=== PATIENT | female | born 1930 | race Caucasian/White ===

== ENCOUNTER 2018-02-24 11:10 | Observation (INO) | payer MEDICARE ==
[~2018-02-24] VITALS: Ht 170.2 cm; Wt 87.0 kg
[2018-02-24 11:41] LABS: BASOPHILS ABSOLUTE AUTO 0.04 K/mm3 (0.00-0.23); BASOPHILS PERCENT AUTO 0 % (0-2); EOSINOPHILS ABSOLUTE AUTO 0.17 K/mm3 (0.00-0.68); EOSINOPHILS PERCENT AUTO 2 % (0-6); Hematocrit 38.9 % (33.0-51.0); Hemoglobin 12.7 g/dL (11.5-16.0); IMMATURE GRAN ABSOLUTE AUTO 0.03 K/mm3 (0.00-0.10); IMMATURE GRAN PERCENT AUTO 0 % (0-1); LYMPHOCYTES ABSOLUTE AUTO 3.03 K/mm3 (0.84-5.20); LYMPHOCYTES PERCENT AUTO 32 % (21-46); MONOCYTES PERCENT AUTO 6 % (4-13); Mean Corpuscular HGB 28.2 pg (26.0-34.0); Mean Corpuscular HGB Conc 32.6 g/dL (31.5-36.5); Mean Corpuscular Volume 86 fL (80-100); Mean Platelet Volume 9.6 fL (9.1-12.4); NEUTROPHILS ABSOLUTE AUTO 5.61 K/mm3 (1.96-9.15); NEUTROPHILS PERCENT AUTO 59 % (41-73); Platelet Count 248 K/mm3 (150-400); RDW Coefficient Variation 12.7 % (11.7-14.2); RDW Standard Deviation 40.1 fL (35.1-46.3); White Blood Cell Count 9.48 K/mm3 (4.00-11.30)
[2018-02-24 11:58] LABS: Source, Urine Clean Catch
[2018-02-24 12:03] LABS: Bilirubin, Urine Neg (Neg); Blood, Urine 4+ (Neg); Glucose Qualitative, Urine 1+ (Neg); Ketones, Urine Neg (Neg); Leukocyte Esterase, Urine 3+ (Neg); Nitrite, Urine Neg (Neg); Protein, Urine 2+ (Neg); Urobilinogen, Urine NORM (Normal)
[2018-02-24 12:04] LABS: Appearance, Urine Hazy (Clear); Color, Urine Yellow (P-Yellow)
[2018-02-24] MEDS ORDERED: AMLO5 PO (12:09)
[2018-02-24] MEDS ORDERED: METF500C PO (12:10)
[2018-02-24] MEDS ORDERED: QUIN10 PO (12:10)
[2018-02-24 12:12] LABS: Alanine Aminotransfer (ALT/SGP 15 U/L (12-78); Albumin, Blood 3.3 g/dL (3.4-5.0); Albumin/Globulin Ratio 0.8 (0.8-1.8); Alk Phos 82 U/L (50-136); Anion Gap 9 mmol/L (6-16); Aspartate Aminotrans (AST/SGOT 11 U/L (12-37); Bilirubin, Total 0.4 mg/dL (0.1-1.0); Blood Urea Nitrogen 14 mg/dL (8-24); Bun/Creatinine Ratio 13.2 (12.0-20.0); CO2, Blood 27 mmol/L (21-32); Calcium, Blood 8.8 mg/dL (8.5-10.1); Chloride, Blood 104 mmol/L (98-108); Creatinine, Blood 1.06 mg/dL (0.40-1.00); Glomerular Filtration Rate 52 (60-); Glucose, Blood 217 mg/dL (70-99); Potassium, Blood 3.7 mmol/L (3.5-5.5); Sodium, Blood 140 mmol/L (136-145); Total Protein, Blood 7.3 g/dL (6.4-8.2); Troponin I <0.015 ng/mL (0.000-0.040)
[2018-02-24 12:45] LABS: White Blood Cells, Urine TNTC /hpf (0-5)
[2018-02-24 12:46] LABS: Bacteria Rare /hpf; Squamous Epithelial Cells Few /hpf (Few)
[2018-02-25] MEDS ORDERED: LEVFLO500 PO (11:12)
[2018-02-25] MEDS ORDERED: ASPI81CH PO (11:12)
[2018-02-25] MEDS ORDERED: ATOR40TA PO (11:12)
[2018-02-25] MEDS ORDERED: AMLO10 PO (11:12)
== END 2018-02-25 12:28 | disposition home health service (06) ==
LOC: ER 11:10 → MEDS 11:11 → ENPENDDIS 02-25 10:00 → MEDS 02-25 12:28
PROVIDERS: Emergency Medicine
DX: G45.9 Transient cerebral ischemic attack, unspecified (principal); I16.0 Hypertensive urgency; E11.9 Type 2 diabetes mellitus without complications; F03.90 Unspecified dementia, unspecified severity, without behavioral disturbance, psychotic disturbance, mood disturbance, and anxiety; N39.0 Urinary tract infection, site not specified; Z79.84 Long term (current) use of oral hypoglycemic drugs; Z79.899 Other long term (current) drug therapy; Z79.82 Long term (current) use of aspirin
CPT/HCPCS: 70450; 80053; 81001; 82550; 82947; 84484; 85025; 87077; 87086; 87186; 93005; 93010; 93880; 96365; 96372; 96375; 97161; 97165; 97530; 97535; 99285-25; G0378; G8978; G8979; G8980; G8987; G8988; G8989; J0360; J0696; J1650; P9612

== ENCOUNTER 2018-03-15 14:30 | Inpatient (IN) | payer MEDICARE ==
[~2018-03-15] VITALS: Ht 162.6 cm; Wt 88.9 kg
[~2018-03-15 14:30] MED LIST: AMLO10 PO; AMLO5 PO; ASPI81CH PO; ATOR40TA PO; LEVFLO500 PO; LISI20 PO; METF500C PO
[2018-03-15 16:08] LABS: Source, Urine Catheter
[2018-03-15 16:10] LABS: BASOPHILS ABSOLUTE AUTO 0.04 K/mm3 (0.00-0.23); BASOPHILS PERCENT AUTO 0 % (0-2); EOSINOPHILS ABSOLUTE AUTO 0.04 K/mm3 (0.00-0.68); EOSINOPHILS PERCENT AUTO 0 % (0-6); Hematocrit 37.9 % (33.0-51.0); Hemoglobin 12.7 g/dL (11.5-16.0); IMMATURE GRAN ABSOLUTE AUTO 0.07 K/mm3 (0.00-0.10); IMMATURE GRAN PERCENT AUTO 1 % (0-1); LYMPHOCYTES PERCENT AUTO 9 % (21-46); MONOCYTES ABSOLUTE AUTO 0.93 K/mm3 (0.16-1.47); MONOCYTES PERCENT AUTO 7 % (4-13); Mean Corpuscular HGB 28.4 pg (26.0-34.0); Mean Corpuscular HGB Conc 33.5 g/dL (31.5-36.5); Mean Corpuscular Volume 85 fL (80-100); Mean Platelet Volume 9.4 fL (9.1-12.4); NEUTROPHILS ABSOLUTE AUTO 11.81 K/mm3 (1.96-9.15); NEUTROPHILS PERCENT AUTO 83 % (41-73); Platelet Count 331 K/mm3 (150-400); RDW Coefficient Variation 12.3 % (11.7-14.2); RDW Standard Deviation 37.9 fL (35.1-46.3); Red Blood Cell Count 4.47 M/mm3 (3.80-5.20); White Blood Cell Count 14.19 K/mm3 (4.00-11.30)
[2018-03-15 16:13] LABS: Blood, Urine 4+ (Neg); Glucose Qualitative, Urine 1+ (Neg); Ketones, Urine Neg (Neg); Leukocyte Esterase, Urine 3+ (Neg); Nitrite, Urine Neg (Neg); Protein, Urine 3+ (Neg); Urobilinogen, Urine 1+ (Normal)
[2018-03-15 16:39] LABS: Albumin, Blood 3.1 g/dL (3.4-5.0); Albumin/Globulin Ratio 0.7 (0.8-1.8); Bilirubin, Total 0.5 mg/dL (0.1-1.0); Bun/Creatinine Ratio 18.8 (12.0-20.0); Calcium, Blood 9.1 mg/dL (8.5-10.1); Creatinine, Blood 1.44 mg/dL (0.40-1.00); Globulin, Blood 4.5 g/dL (2.2-4.0); Potassium, Blood 4.3 mmol/L (3.5-5.5); Total Protein, Blood 7.6 g/dL (6.4-8.2)
[2018-03-15 16:56] LABS: Appearance, Urine Cloudy (Clear); Bilirubin, Urine 2+ (Neg); Color, Urine Yellow (P-Yellow)
[2018-03-15 17:05] LABS: Squamous Epithelial Cells Many /hpf (Few)
[2018-03-15 17:06] LABS: Amorphous Light (0-Heavy); Bacteria Many /hpf
[2018-03-16 05:29] LABS: BASOPHILS ABSOLUTE AUTO 0.04 K/mm3 (0.00-0.23); BASOPHILS PERCENT AUTO 0 % (0-2); EOSINOPHILS ABSOLUTE AUTO 0.17 K/mm3 (0.00-0.68); EOSINOPHILS PERCENT AUTO 2 % (0-6); Hematocrit 36.3 % (33.0-51.0); IMMATURE GRAN ABSOLUTE AUTO 0.04 K/mm3 (0.00-0.10); IMMATURE GRAN PERCENT AUTO 0 % (0-1); LYMPHOCYTES PERCENT AUTO 26 % (21-46); MONOCYTES ABSOLUTE AUTO 0.69 K/mm3 (0.16-1.47); MONOCYTES PERCENT AUTO 7 % (4-13); Mean Corpuscular HGB 27.8 pg (26.0-34.0); Mean Corpuscular HGB Conc 33.1 g/dL (31.5-36.5); Mean Corpuscular Volume 84 fL (80-100); Mean Platelet Volume 9.1 fL (9.1-12.4); NEUTROPHILS PERCENT AUTO 65 % (41-73); Platelet Count 313 K/mm3 (150-400); RDW Coefficient Variation 12.3 % (11.7-14.2); RDW Standard Deviation 37.1 fL (35.1-46.3); Red Blood Cell Count 4.31 M/mm3 (3.80-5.20); White Blood Cell Count 10.64 K/mm3 (4.00-11.30)
[2018-03-16 05:48] LABS: Bun/Creatinine Ratio 23.1 (12.0-20.0); Calcium, Blood 9.1 mg/dL (8.5-10.1); Creatinine, Blood 1.08 mg/dL (0.40-1.00); Potassium, Blood 4.5 mmol/L (3.5-5.5)
[2018-03-18 05:34] LABS: BASOPHILS ABSOLUTE AUTO 0.05 K/mm3 (0.00-0.23); BASOPHILS PERCENT AUTO 1 % (0-2); EOSINOPHILS ABSOLUTE AUTO 0.21 K/mm3 (0.00-0.68); EOSINOPHILS PERCENT AUTO 2 % (0-6); Hematocrit 36.4 % (33.0-51.0); Hemoglobin 12.1 g/dL (11.5-16.0); IMMATURE GRAN ABSOLUTE AUTO 0.03 K/mm3 (0.00-0.10); IMMATURE GRAN PERCENT AUTO 0 % (0-1); LYMPHOCYTES ABSOLUTE AUTO 2.21 K/mm3 (0.84-5.20); LYMPHOCYTES PERCENT AUTO 25 % (21-46); MONOCYTES ABSOLUTE AUTO 0.69 K/mm3 (0.16-1.47); MONOCYTES PERCENT AUTO 8 % (4-13); Mean Corpuscular HGB 28.5 pg (26.0-34.0); Mean Corpuscular HGB Conc 33.2 g/dL (31.5-36.5); Mean Corpuscular Volume 86 fL (80-100); Mean Platelet Volume 9.1 fL (9.1-12.4); NEUTROPHILS ABSOLUTE AUTO 5.78 K/mm3 (1.96-9.15); NEUTROPHILS PERCENT AUTO 65 % (41-73); Platelet Count 320 K/mm3 (150-400); RDW Coefficient Variation 12.2 % (11.7-14.2); RDW Standard Deviation 38.3 fL (35.1-46.3); Red Blood Cell Count 4.25 M/mm3 (3.80-5.20); White Blood Cell Count 8.97 K/mm3 (4.00-11.30)
[2018-03-18 06:07] LABS: Anion Gap 7 mmol/L (6-16); Blood Urea Nitrogen 14 mg/dL (8-24); Bun/Creatinine Ratio 15.1 (12.0-20.0); CO2, Blood 30 mmol/L (21-32); Calcium, Blood 8.9 mg/dL (8.5-10.1); Chloride, Blood 99 mmol/L (98-108); Creatinine, Blood 0.93 mg/dL (0.40-1.00); Glomerular Filtration Rate >60 (60-); Glucose, Blood 129 mg/dL (70-99); Potassium, Blood 4.1 mmol/L (3.5-5.5); Sodium, Blood 136 mmol/L (136-145)
[2018-03-18] MEDS ORDERED: Pedi-Dri 100,0060 GM TOP (12:47)
[2018-03-18] MEDS ORDERED: CEFP200 PO (12:59)
== END 2018-03-18 13:54 | disposition home health service (06) | DRG 871 ==
LOC: DELPENDDIS → ER 14:30 → ERHOLD 17:37 → MEDS 19:18 → ENPENDDIS 03-17 07:35 → MEDS 03-18 09:51 → ENPENDDIS 03-18 11:04 → MEDS 03-18 13:54
PROVIDERS: Emergency Medicine; Internal Medicine
PROC: 3E0234Z Introduction of Serum, Toxoid and Vaccine into Muscle, Percutaneous Approach (ICD-10-PCS; principal; 2018-03-17)
DX: A41.9 Sepsis, unspecified organism (principal); G92 Toxic encephalopathy; N39.0 Urinary tract infection, site not specified; N17.9 Acute kidney failure, unspecified; N18.9 Chronic kidney disease, unspecified; E11.22 Type 2 diabetes mellitus with diabetic chronic kidney disease; F03.90 Unspecified dementia, unspecified severity, without behavioral disturbance, psychotic disturbance, mood disturbance, and anxiety; I12.9 Hypertensive chronic kidney disease with stage 1 through stage 4 chronic kidney disease, or unspecified chronic kidney disease; Z74.09 Other reduced mobility; Z66 Do not resuscitate; Z23 Encounter for immunization; Z86.73 Personal history of transient ischemic attack (TIA), and cerebral infarction without residual deficits; Z79.84 Long term (current) use of oral hypoglycemic drugs; Z79.82 Long term (current) use of aspirin; Z79.899 Other long term (current) drug therapy
CPT/HCPCS: 36415; 51702; 71045; 80048; 80053; 81001; 82947; 85025; 87086; 90686; 93005; 93010; 96365; 96366; 97110; 97161; 97165; 97530; 97535; 99285-25; G8978; G8979; G8987; G8988; J0696; J1650; J7050; J7120; P9612

== ENCOUNTER 2019-07-14 19:22 | Inpatient (IN) | payer MEDICARE ==
[~2019-07-14] VITALS: Ht 165.1 cm; Wt 99.8 kg
[~2019-07-14 19:22] MED LIST changes: +CEFP200 PO; +Pedi-Dri 100,0060 GM TOP; +QUIN10 PO
[2019-07-14 20:40] LABS: BASOPHILS ABSOLUTE AUTO 0.08 K/mm3 (0.00-0.23); BASOPHILS PERCENT AUTO 1 % (0-2); EOSINOPHILS ABSOLUTE AUTO 0.12 K/mm3 (0.00-0.68); EOSINOPHILS PERCENT AUTO 1 % (0-6); Hematocrit 42.6 % (33.0-51.0); Hemoglobin 13.5 g/dL (11.5-16.0); IMMATURE GRAN ABSOLUTE AUTO 0.06 K/mm3 (0.00-0.10); IMMATURE GRAN PERCENT AUTO 0 % (0-1); LYMPHOCYTES ABSOLUTE AUTO 2.57 K/mm3 (0.84-5.20); LYMPHOCYTES PERCENT AUTO 18 % (21-46); MONOCYTES ABSOLUTE AUTO 0.92 K/mm3 (0.16-1.47); MONOCYTES PERCENT AUTO 6 % (4-13); Mean Corpuscular HGB 28.5 pg (26.0-34.0); Mean Corpuscular HGB Conc 31.7 g/dL (31.5-36.5); Mean Corpuscular Volume 90 fL (80-100); Mean Platelet Volume 9.8 fL (9.1-12.4); NEUTROPHILS ABSOLUTE AUTO 10.77 K/mm3 (1.96-9.15); NEUTROPHILS PERCENT AUTO 74 % (41-73); Platelet Count 392 K/mm3 (150-400); Red Blood Cell Count 4.74 M/mm3 (3.80-5.20); White Blood Cell Count 14.52 K/mm3 (4.00-11.30)
[2019-07-14 20:51] LABS: Alanine Aminotransfer (ALT/SGP 13 U/L (12-78); Albumin, Blood 3.7 g/dL (3.4-5.0); Albumin/Globulin Ratio 0.8 (0.8-1.8); Alk Phos 78 U/L (50-136); Anion Gap 9 mmol/L (6-16); Aspartate Aminotrans (AST/SGOT 8 U/L (12-37); Bilirubin, Total 0.2 mg/dL (0.1-1.0); Blood Urea Nitrogen 34 mg/dL (8-24); Bun/Creatinine Ratio 33.7 (12.0-20.0); CO2, Blood 26 mmol/L (21-32); Calcium, Blood 9.5 mg/dL (8.5-10.1); Chloride, Blood 103 mmol/L (98-108); Creatinine, Blood 1.01 mg/dL (0.40-1.00); Ethanol (Alcohol), Blood, Med <3 mg/dL; Globulin, Blood 4.8 g/dL (2.2-4.0); Glomerular Filtration Rate 55 (60-); Glucose, Blood 170 mg/dL (70-99); Potassium, Blood 4.3 mmol/L (3.5-5.5); Sodium, Blood 138 mmol/L (136-145); Total Protein, Blood 8.5 g/dL (6.4-8.2)
[2019-07-14 20:54] LABS: International Normalized Ratio 0.98; Prothrombin Time Results 10.5 Sec (9.7-11.5)
[2019-07-14 21:56] LABS: Source, Urine Catheter
[2019-07-14 21:59] LABS: Bilirubin, Urine Neg (Neg); Blood, Urine 2+ (Neg); Glucose Qualitative, Urine Neg (Neg); Ketones, Urine Neg (Neg); Leukocyte Esterase, Urine 3+ (Neg); Nitrite, Urine Pos (Neg); Protein, Urine 1+ (Neg); Specific Gravity, Urine 1.025 (1.003-1.022); Urobilinogen, Urine NORM (Normal)
[2019-07-14 22:09] LABS: Appearance, Urine Cloudy (Clear); Color, Urine Yellow (P-Yellow)
[2019-07-14 22:10] LABS: Bacteria Many /hpf; Red Blood Cells, Urine Rare /hpf (0-2); Squamous Epithelial Cells Not Seen /hpf (Few); White Blood Cells, Urine TNTC /hpf (0-5)
[2019-07-15 05:47] LABS: BASOPHILS ABSOLUTE AUTO 0.05 K/mm3 (0.00-0.23); BASOPHILS PERCENT AUTO 1 % (0-2); EOSINOPHILS ABSOLUTE AUTO 0.11 K/mm3 (0.00-0.68); EOSINOPHILS PERCENT AUTO 1 % (0-6); Hematocrit 34.4 % (33.0-51.0); Hemoglobin 11.2 g/dL (11.5-16.0); IMMATURE GRAN ABSOLUTE AUTO 0.02 K/mm3 (0.00-0.10); IMMATURE GRAN PERCENT AUTO 0 % (0-1); LYMPHOCYTES ABSOLUTE AUTO 2.96 K/mm3 (0.84-5.20); LYMPHOCYTES PERCENT AUTO 31 % (21-46); MONOCYTES ABSOLUTE AUTO 0.55 K/mm3 (0.16-1.47); MONOCYTES PERCENT AUTO 6 % (4-13); Mean Corpuscular HGB 28.6 pg (26.0-34.0); Mean Corpuscular HGB Conc 32.6 g/dL (31.5-36.5); Mean Corpuscular Volume 88 fL (80-100); NEUTROPHILS ABSOLUTE AUTO 5.89 K/mm3 (1.96-9.15); NEUTROPHILS PERCENT AUTO 62 % (41-73); Platelet Count 306 K/mm3 (150-400); RDW Standard Deviation 41.8 fL (35.1-46.3); Red Blood Cell Count 3.92 M/mm3 (3.80-5.20); White Blood Cell Count 9.58 K/mm3 (4.00-11.30)
[2019-07-15 06:05] LABS: Anion Gap 6 mmol/L (6-16); Blood Urea Nitrogen 28 mg/dL (8-24); Bun/Creatinine Ratio 35.1 (12.0-20.0); CO2, Blood 25 mmol/L (21-32); Calcium, Blood 8.4 mg/dL (8.5-10.1); Chloride, Blood 110 mmol/L (98-108); Glomerular Filtration Rate >60 (60-); Glucose, Blood 134 mg/dL (70-99); Potassium, Blood 4.3 mmol/L (3.5-5.5); Sodium, Blood 141 mmol/L (136-145)
--- NOTE | 2019-07-15 06:07 | NUR ---
SHIFT SUMMARY: VSS. AFEB. A/O TO SELF ONLY. DENIES PAIN. REMAINED IN BED WITHOUT ATTEMPTS TO SELF AMB. BED ALARM ON. IVF FLOWING WIDE OPEN ORDERED. ABD SOFT, TENDER WITH PALPATION, MILDLY DISTENDED, WITH HYPERACTIVE BT. PT HAS NOT HAD A BM SINCE ARRIVAL ON THE UNIT TONIGHT. RESPONDS WITH "I DON'T KNOW" TO MOST QUESTIONS. BED LOW, CALL BUTTON IN REACH.
--- NOTE | 2019-07-15 17:26 | NUR ---
SUMMARY PT RESTING QUIETLY IN BED, WAKES EASILY, PT PULLED OUT HER IV FIRST THING THIS MORNING, NEW IV PLACED, PT RILEY WELL, FAMILY HAS BEEN IN TO VISIT, DAUGHTER CALLED AND WON'T BE COMING IN DUE TO SICKNESS, PT VERY CONFUSED BUT PLEASANT, DOES NOT REORIENT, DOES NOT CONSISTENTLY FOLLOW COMMANDS, HAS BEEN UP TO THE CHAIR FOR MEALS, PT IS A 2P ASSIST, VSS, NO ACUTE CHANGES, WILL CONT TO MONITOR
--- NOTE | 2019-07-16 05:01 | NUR ---
SHIFT SUMMARY: VSS. AFEB. A/OX1. DOES NOT MAKE NEEDS KNOWN. SLEPT POORLY. VERY QUIET. PLEASANTLY CONFUSED. SAYS FEW WORDS AND MOSTLY "I DON'T KNOW". GIGGLES EVERY NOW AND AGAIN IN RESPONSE TO HER TV OR CONVERSATION. INCONTINENT. UNABLE TO ANSWER QUESTION OF DYSURIA. URINE CONCENTRATED, BUT NON-MALODOROUS. IV ABT INFUSED PER ORDERS WITHOUT ISSUE. PT TOUCHES IV LINE BUT HAS NOT PULLED AT THE TUBING. BED LOW, CALL BUTTON IN REACH, BED ALARM ON. NO ATTEMPTS TO SELF TRANSFER.
[2019-07-16 05:16] LABS: BASOPHILS ABSOLUTE AUTO 0.06 K/mm3 (0.00-0.23); BASOPHILS PERCENT AUTO 1 % (0-2); EOSINOPHILS ABSOLUTE AUTO 0.22 K/mm3 (0.00-0.68); EOSINOPHILS PERCENT AUTO 3 % (0-6); Hematocrit 32.4 % (33.0-51.0); Hemoglobin 10.5 g/dL (11.5-16.0); IMMATURE GRAN ABSOLUTE AUTO 0.02 K/mm3 (0.00-0.10); IMMATURE GRAN PERCENT AUTO 0 % (0-1); LYMPHOCYTES ABSOLUTE AUTO 3.11 K/mm3 (0.84-5.20); LYMPHOCYTES PERCENT AUTO 36 % (21-46); MONOCYTES ABSOLUTE AUTO 0.55 K/mm3 (0.16-1.47); MONOCYTES PERCENT AUTO 6 % (4-13); Mean Corpuscular HGB 28.2 pg (26.0-34.0); Mean Corpuscular HGB Conc 32.4 g/dL (31.5-36.5); Mean Corpuscular Volume 87 fL (80-100); Mean Platelet Volume 9.2 fL (9.1-12.4); NEUTROPHILS ABSOLUTE AUTO 4.68 K/mm3 (1.96-9.15); NEUTROPHILS PERCENT AUTO 54 % (41-73); Platelet Count 282 K/mm3 (150-400); RDW Coefficient Variation 13.1 % (11.7-14.2); RDW Standard Deviation 41.3 fL (35.1-46.3); Red Blood Cell Count 3.73 M/mm3 (3.80-5.20); White Blood Cell Count 8.64 K/mm3 (4.00-11.30)
[2019-07-16 05:31] LABS: Anion Gap 5 mmol/L (6-16); Blood Urea Nitrogen 16 mg/dL (8-24); Bun/Creatinine Ratio 22.6 (12.0-20.0); CO2, Blood 28 mmol/L (21-32); Calcium, Blood 9.2 mg/dL (8.5-10.1); Chloride, Blood 106 mmol/L (98-108); Creatinine, Blood 0.71 mg/dL (0.40-1.00); Glomerular Filtration Rate >60 (60-); Glucose, Blood 120 mg/dL (70-99); Potassium, Blood 4.2 mmol/L (3.5-5.5); Sodium, Blood 139 mmol/L (136-145)
--- NOTE | 2019-07-16 18:24 | NUR ---
SUMMARY PT SITTING UP IN THE CHAIR AT THE BEDSIDE TO EAT HER DINNER, PT HAS BEEN UP IN THE CHAIR AND BACK IN BED SEVERAL TIMES TODAY, FAMILY HAS BEEN IN TO VISIT, PT HAS BEEN MORE AWAKE AND ALERT TODAY, NO COMPLAINTS, VSS, NO ACUTE CHANGES, WILL CONT TO MONITOR
[2019-07-17 04:56] LABS: BASOPHILS ABSOLUTE AUTO 0.05 K/mm3 (0.00-0.23); BASOPHILS PERCENT AUTO 1 % (0-2); EOSINOPHILS ABSOLUTE AUTO 0.17 K/mm3 (0.00-0.68); EOSINOPHILS PERCENT AUTO 2 % (0-6); Hematocrit 33.9 % (33.0-51.0); Hemoglobin 11.1 g/dL (11.5-16.0); IMMATURE GRAN ABSOLUTE AUTO 0.02 K/mm3 (0.00-0.10); IMMATURE GRAN PERCENT AUTO 0 % (0-1); LYMPHOCYTES ABSOLUTE AUTO 2.75 K/mm3 (0.84-5.20); LYMPHOCYTES PERCENT AUTO 32 % (21-46); MONOCYTES ABSOLUTE AUTO 0.63 K/mm3 (0.16-1.47); MONOCYTES PERCENT AUTO 7 % (4-13); Mean Corpuscular HGB Conc 32.7 g/dL (31.5-36.5); Mean Corpuscular Volume 85 fL (80-100); NEUTROPHILS ABSOLUTE AUTO 5.12 K/mm3 (1.96-9.15); NEUTROPHILS PERCENT AUTO 59 % (41-73); Platelet Count 313 K/mm3 (150-400); RDW Coefficient Variation 12.9 % (11.7-14.2); RDW Standard Deviation 39.9 fL (35.1-46.3); Red Blood Cell Count 3.97 M/mm3 (3.80-5.20); White Blood Cell Count 8.74 K/mm3 (4.00-11.30)
[2019-07-17 05:17] LABS: Anion Gap 7 mmol/L (6-16); Blood Urea Nitrogen 16 mg/dL (8-24); Bun/Creatinine Ratio 20.9 (12.0-20.0); CO2, Blood 28 mmol/L (21-32); Calcium, Blood 9.5 mg/dL (8.5-10.1); Chloride, Blood 106 mmol/L (98-108); Creatinine, Blood 0.76 mg/dL (0.40-1.00); Glomerular Filtration Rate >60 (60-); Glucose, Blood 124 mg/dL (70-99); Potassium, Blood 3.9 mmol/L (3.5-5.5); Sodium, Blood 141 mmol/L (136-145)
--- NOTE | 2019-07-17 06:16 | NUR ---
BP 187/99. VERIFIED. TELE PLACED PER NURSING PROTOCOL FOR IV LABETALOL. BP CHECKED PRIOR TO ADMINISTRATION 181/91. 157/73 5 MIN AFTER LABETALOL. 160/81 20 MIN AFTER LABETALOL.
--- NOTE | 2019-07-17 06:23 | NUR ---
PT DID NOT VOID ALL SHIFT. 1 UNSUCCESSFUL ATTEMPT TO URINATE. PREMEDICATED WITH NORCO PRIOR TO REPOSITIONING PT FOR BLADDER SCAN. PT GRIMACED, MOANED, AND GAURDED HIP. LESS OBSERVED PAIN SYMPTOMS AFTER NORCO. PT DID NOT FULLY WAKE UP FOR BLADDER SCAN OR STRAIGHT CATH. 572 CC SHOWN ON BLADDER SCAN, 590 CC'S OUT WITH STRAIGHT CATH.
--- NOTE | 2019-07-17 07:40 | NUR ---
SHIFT SUMMARY: A/O X 1. SLEPT MOST OF THE NIGHT. ATTEMPTED SELF T/F X 2. HAD BEEN INCONTINENT EACH TIME. DENIES PAIN. BED LOW, CALL BUTTON IN REACH, BED ALARM ON. NO ACUTE CHANGES.
--- NOTE | 2019-07-17 17:38 | NUR ---
PT AOX1 AND PLEASANTLY CONFUSED. PT IS A HEAVY TWO PERSON TRANSFER TO CHAIR WITH WALKER AND GAIT BELT. PT DOESN'T USE CALL LIGHT. PT VERY NICE TO INTERACT WITH AND CARE FOR. PT HAD ENEMA DONE TODAY, BUT NO SUCCESS AT THIS TIME. PT SITTING IN BED EATIING HER DINNER NO DISTRESS NOTED WILL CONTINUE TO MONITOR.
--- NOTE | 2019-07-18 04:04 | NUR ---
SHIFT SUMMARY PT HAD NO ISSUES NOTED. PT HAS BEEN SLEEPING SINCE NIGHT MEDS. PT HAS BEEN CHANGED AND REPOSITIONED NEEDED. PT CURRENTLY SLEEPING AND BREATHING EASY. CALL LIGHT IN REACH AND BED ALARM ON.
[2019-07-18 05:01] LABS: BASOPHILS ABSOLUTE AUTO 0.04 K/mm3 (0.00-0.23); BASOPHILS PERCENT AUTO 1 % (0-2); EOSINOPHILS ABSOLUTE AUTO 0.21 K/mm3 (0.00-0.68); EOSINOPHILS PERCENT AUTO 3 % (0-6); Hematocrit 34.2 % (33.0-51.0); Hemoglobin 11.3 g/dL (11.5-16.0); IMMATURE GRAN ABSOLUTE AUTO 0.02 K/mm3 (0.00-0.10); IMMATURE GRAN PERCENT AUTO 0 % (0-1); LYMPHOCYTES ABSOLUTE AUTO 2.86 K/mm3 (0.84-5.20); LYMPHOCYTES PERCENT AUTO 35 % (21-46); MONOCYTES ABSOLUTE AUTO 0.67 K/mm3 (0.16-1.47); MONOCYTES PERCENT AUTO 8 % (4-13); Mean Corpuscular HGB 28.3 pg (26.0-34.0); Mean Corpuscular Volume 86 fL (80-100); NEUTROPHILS PERCENT AUTO 53 % (41-73); Platelet Count 321 K/mm3 (150-400); RDW Coefficient Variation 12.9 % (11.7-14.2); RDW Standard Deviation 40.2 fL (35.1-46.3); Red Blood Cell Count 3.99 M/mm3 (3.80-5.20)
[2019-07-18 05:20] LABS: Anion Gap 6 mmol/L (6-16); Blood Urea Nitrogen 19 mg/dL (8-24); Bun/Creatinine Ratio 20.4 (12.0-20.0); CO2, Blood 28 mmol/L (21-32); Chloride, Blood 105 mmol/L (98-108); Creatinine, Blood 0.93 mg/dL (0.40-1.00); Glomerular Filtration Rate >60 (60-); Glucose, Blood 124 mg/dL (70-99); Potassium, Blood 3.8 mmol/L (3.5-5.5); Sodium, Blood 139 mmol/L (136-145)
[2019-07-18] MEDS ORDERED: DOCU100 PO (09:30)
[2019-07-18] MEDS ORDERED: ACET325 PO (09:30)
[2019-07-18] MEDS ORDERED: CEFP200 PO (09:30)
[2019-07-18] MEDS ORDERED: Culturelle1 CAP PO (09:31)
[2019-07-18] MEDS ORDERED: HYDRA25 PO (09:31)
[2019-07-18] MEDS ORDERED: ONDA4ODT MM (09:32)
[2019-07-18] MEDS ORDERED: READY TO USE E133 ML PR (09:32)
[2019-07-18] MEDS ORDERED: MILK OF MA400 MG/5 M PO (09:32)
[2019-07-18] MEDS ORDERED: SENN187 PO (09:33)
[2019-07-18 10:41] LABS: BASOPHILS PERCENT AUTO 1 % (0-2); EOSINOPHILS ABSOLUTE AUTO 0.25 K/mm3 (0.00-0.68); EOSINOPHILS PERCENT AUTO 2 % (0-6); Hematocrit 37.8 % (33.0-51.0); Hemoglobin 12.3 g/dL (11.5-16.0); IMMATURE GRAN ABSOLUTE AUTO 0.02 K/mm3 (0.00-0.10); IMMATURE GRAN PERCENT AUTO 0 % (0-1); LYMPHOCYTES ABSOLUTE AUTO 4.28 K/mm3 (0.84-5.20); LYMPHOCYTES PERCENT AUTO 36 % (21-46); MONOCYTES ABSOLUTE AUTO 0.72 K/mm3 (0.16-1.47); MONOCYTES PERCENT AUTO 6 % (4-13); Mean Corpuscular HGB 28.6 pg (26.0-34.0); Mean Corpuscular HGB Conc 32.5 g/dL (31.5-36.5); Mean Corpuscular Volume 88 fL (80-100); Mean Platelet Volume 9.2 fL (9.1-12.4); NEUTROPHILS ABSOLUTE AUTO 6.45 K/mm3 (1.96-9.15); NEUTROPHILS PERCENT AUTO 55 % (41-73); Platelet Count 351 K/mm3 (150-400); RDW Coefficient Variation 13.1 % (11.7-14.2); RDW Standard Deviation 41.9 fL (35.1-46.3); White Blood Cell Count 11.82 K/mm3 (4.00-11.30)
[2019-07-18 11:05] LABS: Albumin, Blood 3.4 g/dL (3.4-5.0); Albumin/Globulin Ratio 0.8 (0.8-1.8); Bilirubin, Total 0.3 mg/dL (0.1-1.0); Bun/Creatinine Ratio 20.6 (12.0-20.0); Calcium, Blood 9.2 mg/dL (8.5-10.1); Creatinine, Blood 0.97 mg/dL (0.40-1.00); Globulin, Blood 4.4 g/dL (2.2-4.0); Potassium, Blood 4.4 mmol/L (3.5-5.5); Total Protein, Blood 7.8 g/dL (6.4-8.2)
--- NOTE | 2019-07-18 11:50 | NUR ---
PT HAD HEART RATE DROP AT AROUND 1010. THIS NURSE WAS NOTIFED BY PCU. RAPID RESPONSE WAS CALLED PLEASE SEE RR INITIATION NOTE. ONCE TEAM ARRIVED PT WAS SITTING UP IN BED. PT VOMITTED X3 ONCE SHE RECOVERED FROM THIS SHE WAS ALERT TO HER NAME, BUT NOT VERBALLY RESPONDING BACK. ONCE TEAM WAS HAPPY WITH PT'S VITALS AND DR STUART'S ORDERS BEEN INTIATED PT WAS CLEANED UP AND GIVEN A BATH. PT IS NOW RESTING IN HER BED RAILS UP FOR SAFETY AND ALARM ON.
--- NOTE | 2019-07-18 14:07 | NUR ---
Attempted to see Pt but currently resting with her eyes closed. No S/S of distress at this time. Spoke with bedside RN Maria Luisa and discussed case. Maria Luisa reports Pt has been more lethargic and obtunded since rapid response called this AM. Pt experienced significantly low heart rate and also vomited this AM. Family reports Pt has experienced this in the past and tends to sleep for quite sometime after experiencing these symptoms. Family plans to visit tomorrow. Palliative Care will remain available.
--- NOTE | 2019-07-18 17:17 | NUR ---
PT HAS NOW WOKE UP MUCH MORE AND IS ABLE TO VERBALIZE MORE. SHE STILL IS TIRED, BUT ITS GOOD TO SEE HER TALK AND LAUGH WHILE CARING FOR HER. PT IS RESTING IN BED AT THIS TIME. PT IS ABLE TO TELL THIS HAMMER OPERATOR IF SHE WANTS WANTS SOMETHING NOW. ALMOST DONE WITH THE 1 BAG OF NS AND WILL SALINE LOCK ONCE COMPLETE. WILL CONTINUE TO MONITOR.
--- NOTE | 2019-07-18 17:48 | NUR ---
Initial spiritual care note: Responded to rapid response for this pt. No family present. Pt lethagic, minimally alert. T/c to dtrDoris, who is listed as contact. She told me "Mom does this sort of thing all the time. She has seizures, throws-up, and then is sleepy the rest of the day." When things calmed down, sat with pt, holding her hand. Spoke words of encouragement and care. I will remain available to pt and family.
--- NOTE | 2019-07-19 04:28 | NUR ---
SHIFT SUMMARY PT HAD NO ISSUES NOTED THIS SHIFT. PT WAS ALERT AND ENGAGING AT BEGINNING OF SHIFT. PTHAS BEEN SLEEPING SOUNDLY SINCE NIGHTTIME MEDS. PT IS CURRENTLY SLEEPING IN NO DISTRESS. PT HAS BEEN CHANGED AND REPOSITIONED NEEDED. PT IS CURRENTLY SLEEPING IN NO DISTRESS. CALL LIGHT IN REACH AND BED ALARM ON.
--- NOTE | 2019-07-19 10:00 | NUR ---
PT PLEASANTLY CONFUSED, UNABLE TO TELL ME DATE, AGE, PLACE, ADVANCED DEMENTIA. HARD TIME SWALLOWING PILLS. EATS WELL, JUST SPITS OUT SEVERAL TIMES. DID EVENTUALLY GET DONE. H/R REG, NO MURMER NOTED. PER TELE. NSR AT 69 NO EVENTS LAST NITE. LUNGS CLEAR, RESP EASY, UNLABORED. ON R.A. BT X4 LAST BM UNKNOWN. INCONT. VOIDS PER ATTENDS, INCONT. BED IN LOW POSITION, CALL LITE IN REACH, BED ALARM ON FOR SAFETY
--- NOTE | 2019-07-19 11:31 | NUR ---
CALLED REPORT TO SHELLY PAUL.
--- NOTE | 2019-07-19 12:59 | NUR ---
PT D/C TO [facility] AT 1257. OUT WITH TRANSPORT . IV PULLED INTACT. TELE REMOVED.
== END 2019-07-19 12:56 | DRG 871 ==
LOC: ER 19:22 → ERHOLD 07-15 01:50 → MEDS 07-15 01:50 → ENPENDDIS 07-19 09:00 → MEDS 07-19 12:56
PROVIDERS: Emergency Medicine; Family Medicine; Nurse Practitioner Acute Care; ADMIT Internal Medicine
DX: A41.51 Sepsis due to Escherichia coli [E. coli] (principal); G93.41 Metabolic encephalopathy; N39.0 Urinary tract infection, site not specified; R65.20 Severe sepsis without septic shock; I10 Essential (primary) hypertension; Z74.09 Other reduced mobility; F03.90 Unspecified dementia, unspecified severity, without behavioral disturbance, psychotic disturbance, mood disturbance, and anxiety; E11.9 Type 2 diabetes mellitus without complications; K59.09 Other constipation; E86.0 Dehydration; Z86.73 Personal history of transient ischemic attack (TIA), and cerebral infarction without residual deficits; Z87.440 Personal history of urinary (tract) infections; Z79.82 Long term (current) use of aspirin; Z79.84 Long term (current) use of oral hypoglycemic drugs; Z87.891 Personal history of nicotine dependence
CPT/HCPCS: 36415; 71045; 74018; 80048; 80053; 81001; 82947; 83605; 85025; 85610; 87040; 87077; 87086; 87186; 93005; 93010; 96361; 96365; 96375; 97110; 97162; 97166; 97530; 99285-25; G0480; J0696; J2405; J7030; J7050; P9612

== ENCOUNTER 2020-02-28 22:05 | Emergency (ER) | payer MEDICARE ==
[~2020-02-28] VITALS: Ht 160 cm; Wt 68.0 kg
[~2020-02-28 22:05] MED LIST changes: +ACET325 PO; +Amoxicillin500 MG PO; +CELECOXIB200 MG PO; +Culturelle1 CAP PO; +DOCU100 PO; +HYDRA25 PO; +MILK OF MA400 MG/5 M PO; +NYSTOP15 GM; +ONDA4ODT MM; -Pedi-Dri 100,0060 GM TOP; +READY TO USE E133 ML PR; +SENN187 PO
[2020-02-29 00:22] LABS: Source, Urine Clean Catch
[2020-02-29 00:24] LABS: BASOPHILS ABSOLUTE AUTO 0.07 K/mm3 (0.00-0.23); BASOPHILS PERCENT AUTO 1 % (0-2); EOSINOPHILS PERCENT AUTO 1 % (0-6); Hematocrit 36.4 % (33.0-51.0); Hemoglobin 11.7 g/dL (11.5-16.0); IMMATURE GRAN ABSOLUTE AUTO 0.04 K/mm3 (0.00-0.10); IMMATURE GRAN PERCENT AUTO 0 % (0-1); LYMPHOCYTES ABSOLUTE AUTO 2.01 K/mm3 (0.84-5.20); LYMPHOCYTES PERCENT AUTO 19 % (21-46); MONOCYTES ABSOLUTE AUTO 0.67 K/mm3 (0.16-1.47); MONOCYTES PERCENT AUTO 6 % (4-13); Mean Corpuscular HGB Conc 32.1 g/dL (31.5-36.5); Mean Corpuscular Volume 84 fL (80-100); NEUTROPHILS ABSOLUTE AUTO 7.91 K/mm3 (1.96-9.15); NEUTROPHILS PERCENT AUTO 73 % (41-73); Platelet Count 360 K/mm3 (150-400); RDW Coefficient Variation 13.5 % (11.7-14.2); RDW Standard Deviation 42.1 fL (35.1-46.3); Red Blood Cell Count 4.33 M/mm3 (3.80-5.20)
[2020-02-29 00:25] LABS: Bilirubin, Urine Neg (Neg); Blood, Urine 3+ (Neg); Glucose Qualitative, Urine Neg (Neg); Ketones, Urine Neg (Neg); Leukocyte Esterase, Urine 3+ (Neg); Nitrite, Urine Pos (Neg); Protein, Urine 2+ (Neg); Specific Gravity, Urine 1.015 (1.003-1.022); Urobilinogen, Urine 1+ (Normal); pH, Urine 6.5 (5.0-8.0)
[2020-02-29 00:32] LABS: Appearance, Urine Cloudy (Clear); Color, Urine Yellow (P-Yellow)
[2020-02-29 00:34] LABS: Bacteria Many /hpf; Red Blood Cells, Urine 0-2 /hpf (0-2); Squamous Epithelial Cells Not Seen /hpf (Few); White Blood Cells, Urine TNTC /hpf (0-5)
[2020-02-29 00:44] LABS: Alanine Aminotransfer (ALT/SGP 18 U/L (12-78); Albumin, Blood 3.5 g/dL (3.4-5.0); Albumin/Globulin Ratio 0.7 (0.8-1.8); Alk Phos 84 U/L (50-136); Anion Gap 6 mmol/L (6-16); Aspartate Aminotrans (AST/SGOT 9 U/L (12-37); Bilirubin, Total 0.3 mg/dL (0.1-1.0); Blood Urea Nitrogen 21 mg/dL (8-24); Bun/Creatinine Ratio 19.8 (12.0-20.0); CO2, Blood 27 mmol/L (21-32); Calcium, Blood 9.3 mg/dL (8.5-10.1); Chloride, Blood 99 mmol/L (98-108); Creatinine, Blood 1.06 mg/dL (0.40-1.00); Glomerular Filtration Rate 52 (60-); Glucose, Blood 172 mg/dL (70-99); Potassium, Blood 5.2 mmol/L (3.5-5.5); Sodium, Blood 132 mmol/L (136-145); Total Protein, Blood 8.5 g/dL (6.4-8.2); Troponin I <0.015 ng/mL (0.000-0.040)
[2020-02-29] MEDS ORDERED: CEFP200 PO (00:51)
== END 2020-02-29 01:25 | disposition home or self-care (01) ==
LOC: ER 22:05
PROVIDERS: Emergency Medicine
DX: N39.0 Urinary tract infection, site not specified (principal); Z79.82 Long term (current) use of aspirin; Z79.84 Long term (current) use of oral hypoglycemic drugs; Z79.899 Other long term (current) drug therapy
CPT/HCPCS: 80053; 81001; 83690; 84484; 85025; 87077; 87086; 87186; 93005; 93010; 96361; 96365; 99285-25; J0696; J7030; P9612

== ENCOUNTER 2020-07-01 19:59 | Emergency (ER) | payer MEDICARE ==
[~2020-07-01] VITALS: Ht 165.1 cm; Wt 83.9 kg
[2020-07-01 20:42] LABS: Source, Urine Clean Catch
[2020-07-01 20:44] LABS: Appearance, Urine Turbid (Clear); Bilirubin, Urine Neg (Neg); Blood, Urine 4+ (Neg); Color, Urine Yellow (P-Yellow); Glucose Qualitative, Urine Neg (Neg); Ketones, Urine Neg (Neg); Leukocyte Esterase, Urine 3+ (Neg); Nitrite, Urine Pos (Neg); Protein, Urine 3+ (Neg); Specific Gravity, Urine 1.015 (1.003-1.022); Urobilinogen, Urine NORM (Normal)
[2020-07-01 20:55] LABS: Red Blood Cells, Urine 0-2 /hpf (0-2); White Blood Cells, Urine TNTC /hpf (0-5)
[2020-07-01 20:56] LABS: Bacteria Many /hpf; Squamous Epithelial Cells Not Seen /hpf (Few)
[2020-07-01] MEDS ORDERED: Cipro500 MG PO (21:19)
== END 2020-07-01 21:54 | disposition home or self-care (01) ==
LOC: ER 19:59
PROVIDERS: Emergency Medicine
DX: N39.0 Urinary tract infection, site not specified (principal); Z79.899 Other long term (current) drug therapy; Z79.84 Long term (current) use of oral hypoglycemic drugs
CPT/HCPCS: 81001; 87077; 87086; 87186; 93005; 93010; 99284-25; P9612

== ENCOUNTER 2020-12-31 20:41 | Emergency (ER) | payer MEDICARE ==
[~2020-12-31] VITALS: Ht 154.9 cm; Wt 79.4 kg
[~2020-12-31 20:41] MED LIST changes: +Cipro500 MG PO
[2020-12-31 22:09] LABS: Source, Urine Catheter
[2020-12-31 22:17] LABS: BASOPHILS ABSOLUTE AUTO 0.04 K/mm3 (0.00-0.23); BASOPHILS PERCENT AUTO 0 % (0-2); EOSINOPHILS ABSOLUTE AUTO 0.09 K/mm3 (0.00-0.68); EOSINOPHILS PERCENT AUTO 1 % (0-6); Hematocrit 36.4 % (33.0-51.0); Hemoglobin 11.8 g/dL (11.5-16.0); IMMATURE GRAN ABSOLUTE AUTO 0.02 K/mm3 (0.00-0.10); IMMATURE GRAN PERCENT AUTO 0 % (0-1); LYMPHOCYTES ABSOLUTE AUTO 1.49 K/mm3 (0.84-5.20); LYMPHOCYTES PERCENT AUTO 17 % (21-46); MONOCYTES ABSOLUTE AUTO 0.61 K/mm3 (0.16-1.47); MONOCYTES PERCENT AUTO 7 % (4-13); Mean Corpuscular HGB 27.8 pg (26.0-34.0); Mean Corpuscular HGB Conc 32.4 g/dL (31.5-36.5); Mean Corpuscular Volume 86 fL (80-100); Mean Platelet Volume 9.3 fL (9.1-12.4); NEUTROPHILS ABSOLUTE AUTO 6.66 K/mm3 (1.96-9.15); NEUTROPHILS PERCENT AUTO 75 % (41-73); Platelet Count 295 K/mm3 (150-400); RDW Coefficient Variation 13.5 % (11.7-14.2); RDW Standard Deviation 42.1 fL (35.1-46.3); Red Blood Cell Count 4.24 M/mm3 (3.80-5.20); White Blood Cell Count 8.91 K/mm3 (4.00-11.30)
[2020-12-31 22:18] LABS: Appearance, Urine Clear (Clear); Bilirubin, Urine Neg (Neg); Blood, Urine 1+ (Neg); Color, Urine Amber (P-Yellow); Glucose Qualitative, Urine Neg (Neg); Ketones, Urine Neg (Neg); Leukocyte Esterase, Urine 2+ (Neg); Nitrite, Urine Neg (Neg); Protein, Urine 2+ (Neg); Urobilinogen, Urine NORM (Normal)
[2020-12-31 22:23] LABS: Bacteria Many /hpf; Red Blood Cells, Urine 0-2 /hpf (0-2); Squamous Epithelial Cells Not Seen /hpf (Few); White Blood Cells, Urine 50-100 /hpf (0-5)
[2020-12-31 22:30] LABS: Albumin, Blood 3.7 g/dL (3.4-5.0); Albumin/Globulin Ratio 0.8 (0.8-1.8); Bilirubin, Total 0.3 mg/dL (0.1-1.0); Bun/Creatinine Ratio 25.5 (12.0-20.0); Calcium, Blood 9.7 mg/dL (8.5-10.1); Creatinine, Blood 1.06 mg/dL (0.40-1.00); Globulin, Blood 4.4 g/dL (2.2-4.0); Potassium, Blood 4.7 mmol/L (3.5-5.5); Total Protein, Blood 8.1 g/dL (6.4-8.2)
[2021-01-01] MEDS ORDERED: CEPH500 PO (00:54)
== END 2021-01-01 01:10 | disposition home or self-care (01) ==
LOC: ER 20:41
PROVIDERS: Emergency Medicine
DX: N39.0 Urinary tract infection, site not specified (principal); K59.00 Constipation, unspecified; I10 Essential (primary) hypertension; E11.9 Type 2 diabetes mellitus without complications; Z79.82 Long term (current) use of aspirin; Z79.899 Other long term (current) drug therapy; Z79.84 Long term (current) use of oral hypoglycemic drugs
CPT/HCPCS: 36415; 74177; 80053; 81001; 83690; 85025; 87077; 87086; 87186; 96365-59; 99285-25; J0696; P9612; Q9967

== ENCOUNTER 2021-05-28 19:25 | Emergency (ER) | payer MEDICARE ==
[~2021-05-28] VITALS: Ht 167.6 cm; Wt 65.8 kg
[~2021-05-28 19:25] MED LIST changes: +CEPH500 PO
[2021-05-28 20:34] LABS: BASOPHILS ABSOLUTE AUTO 0.06 K/mm3 (0.00-0.23); BASOPHILS PERCENT AUTO 1 % (0-2); EOSINOPHILS ABSOLUTE AUTO 0.09 K/mm3 (0.00-0.68); EOSINOPHILS PERCENT AUTO 1 % (0-6); Hematocrit 36.8 % (33.0-51.0); Hemoglobin 11.9 g/dL (11.5-16.0); IMMATURE GRAN ABSOLUTE AUTO 0.03 K/mm3 (0.00-0.10); IMMATURE GRAN PERCENT AUTO 0 % (0-1); LYMPHOCYTES ABSOLUTE AUTO 1.88 K/mm3 (0.84-5.20); LYMPHOCYTES PERCENT AUTO 17 % (21-46); MONOCYTES ABSOLUTE AUTO 0.74 K/mm3 (0.16-1.47); MONOCYTES PERCENT AUTO 7 % (4-13); Mean Corpuscular HGB 27.2 pg (26.0-34.0); Mean Corpuscular HGB Conc 32.3 g/dL (31.5-36.5); Mean Corpuscular Volume 84 fL (80-100); Mean Platelet Volume 9.1 fL (9.1-12.4); NEUTROPHILS ABSOLUTE AUTO 8.57 K/mm3 (1.96-9.15); NEUTROPHILS PERCENT AUTO 75 % (41-73); Platelet Count 369 K/mm3 (150-400); RDW Coefficient Variation 13.9 % (11.7-14.2); Red Blood Cell Count 4.38 M/mm3 (3.80-5.20); White Blood Cell Count 11.37 K/mm3 (4.00-11.30)
[2021-05-28 20:51] LABS: Influenza A, PCR NEGATIVE (NEGATIVE); Influenza B, PCR NEGATIVE (NEGATIVE); Resp Syncytial Virus, PCR NEGATIVE (NEGATIVE); SARS-Cov-2 (COVID-19) PCR, MMC NEGATIVE (NEGATIVE)
[2021-05-28 20:56] LABS: Alanine Aminotransfer (ALT/SGP 13 U/L (12-78); Albumin, Blood 3.3 g/dL (3.4-5.0); Albumin/Globulin Ratio 0.8 (0.8-1.8); Alk Phos 67 U/L (50-136); Anion Gap 9 mmol/L (6-16); Aspartate Aminotrans (AST/SGOT 13 U/L (12-37); Bilirubin, Total 0.3 mg/dL (0.1-1.0); Blood Urea Nitrogen 29 mg/dL (8-24); Bun/Creatinine Ratio 22.8 (12.0-20.0); CO2, Blood 24 mmol/L (21-32); Calcium, Blood 9.4 mg/dL (8.5-10.1); Chloride, Blood 103 mmol/L (98-108); Creatinine, Blood 1.27 mg/dL (0.40-1.00); Globulin, Blood 4.4 g/dL (2.2-4.0); Glomerular Filtration Rate 40 (60-); Glucose, Blood 158 mg/dL (70-99); Potassium, Blood 4.5 mmol/L (3.5-5.5); Sodium, Blood 136 mmol/L (136-145); Total Protein, Blood 7.7 g/dL (6.4-8.2); Troponin I <0.015 ng/mL (0.000-0.040)
[2021-05-28 21:15] LABS: Source, Urine Catheter
[2021-05-28 21:18] LABS: Appearance, Urine Hazy (Clear); Blood, Urine 1+ (Neg); Color, Urine Yellow (P-Yellow); Glucose Qualitative, Urine Neg (Neg); Ketones, Urine 1+ (Neg); Leukocyte Esterase, Urine 1+ (Neg); Nitrite, Urine Neg (Neg); Protein, Urine 2+ (Neg); Specific Gravity, Urine 1.025 (1.003-1.022); Urobilinogen, Urine 2+ (Normal)
[2021-05-28 22:03] LABS: Bilirubin, Urine 2+ (Neg)
[2021-05-28 22:04] LABS: Squamous Epithelial Cells Few /hpf (Few)
[2021-05-28 22:05] LABS: Amorphous Light (0-Heavy)
[2021-05-28 22:06] LABS: Bacteria Few /hpf; Granular Casts 0-2 /lpf (0)
--- NOTE | 2021-05-29 08:57 | NUR ---
ED Palliative Care Consult 89 year old female to the ED for weakness. Pt's medical history and comorbidities include: Dementia, HTN, UTI's, TIA, and DM2. Pt restin on gurney with her eyes closed upon arrival. Pt wakes to verbal stimuli and is pleasantly confused. Pt will respond intermittently to questions with saying "yes". Pt appears frail and no non verbal indicators of discomfort at this time. Attempted to call Pt's daughter Doris and left message with request for a return phone call. Called and spoke with Pt's granddauter Fernanda. Fernanda reports living down the street from Pt. Pt's daughter Doris is the primary caregiver. Fernanda reports Pt is chair bound and requires assistance with transfers. Pt also requires assistance with bathing and dressing. Pt is incontinent of bowel and bladder. Pt no longer able to have meaningful conversations. Pt is able to feed herself and has a good appetite. Listened as Fernanda reports Pt's daughter Doris could benefit from having a bathaide to assist with bathing. Discussed the potential of home health for physical therapy and the importance of applying for [employer]. Fernanda expresses appreciation and reports no other concerns. Spoke with ED Guard Chief Alysia and discussed case. PPS 40% ADLs 5/6 FAST 7C Pt would benefit from home health services then possible transition to hospice in the near future. Palliative Care will remain available.
[2021-05-29] MEDS ORDERED: CEPH500 PO (09:20)
== END 2021-05-29 11:02 | disposition home or self-care (01) ==
LOC: ER 19:25
PROVIDERS: Student in an Organized Health Care Education/Training Program
DX: N39.0 Urinary tract infection, site not specified (principal); R53.1 Weakness; F03.90 Unspecified dementia, unspecified severity, without behavioral disturbance, psychotic disturbance, mood disturbance, and anxiety; I10 Essential (primary) hypertension; E11.9 Type 2 diabetes mellitus without complications; Z20.822 Contact with and (suspected) exposure to COVID-19; Z79.899 Other long term (current) drug therapy; Z79.82 Long term (current) use of aspirin; Z79.84 Long term (current) use of oral hypoglycemic drugs; Z86.73 Personal history of transient ischemic attack (TIA), and cerebral infarction without residual deficits
CPT/HCPCS: 0241U; 36415; 71045; 74177; 80053; 81001; 83690; 84484; 85025; 87086; 93005; 93010; 96365; 96375; 99285-25; A9270; J0696; J2405; J7030; P9612; Q9967

== ENCOUNTER 2021-06-01 10:25 | Emergency (ER) | payer MEDICARE ==
[~2021-06-01] VITALS: Ht 160 cm; Wt 68.0 kg
[2021-06-01 12:14] LABS: BASOPHILS ABSOLUTE AUTO 0.05 K/mm3 (0.00-0.23); BASOPHILS PERCENT AUTO 1 % (0-2); EOSINOPHILS ABSOLUTE AUTO 0.15 K/mm3 (0.00-0.68); EOSINOPHILS PERCENT AUTO 2 % (0-6); Hematocrit 32.2 % (33.0-51.0); Hemoglobin 10.1 g/dL (11.5-16.0); IMMATURE GRAN ABSOLUTE AUTO 0.02 K/mm3 (0.00-0.10); IMMATURE GRAN PERCENT AUTO 0 % (0-1); LYMPHOCYTES ABSOLUTE AUTO 2.23 K/mm3 (0.84-5.20); LYMPHOCYTES PERCENT AUTO 31 % (21-46); MONOCYTES ABSOLUTE AUTO 0.53 K/mm3 (0.16-1.47); MONOCYTES PERCENT AUTO 7 % (4-13); Mean Corpuscular HGB 26.9 pg (26.0-34.0); Mean Corpuscular HGB Conc 31.4 g/dL (31.5-36.5); Mean Corpuscular Volume 86 fL (80-100); Mean Platelet Volume 8.9 fL (9.1-12.4); NEUTROPHILS ABSOLUTE AUTO 4.22 K/mm3 (1.96-9.15); NEUTROPHILS PERCENT AUTO 59 % (41-73); Platelet Count 307 K/mm3 (150-400); RDW Coefficient Variation 13.9 % (11.7-14.2); RDW Standard Deviation 43.8 fL (35.1-46.3); Red Blood Cell Count 3.76 M/mm3 (3.80-5.20)
[2021-06-01 12:54] LABS: Alanine Aminotransfer (ALT/SGP 17 U/L (12-78); Albumin, Blood 2.8 g/dL (3.4-5.0); Albumin/Globulin Ratio 0.8 (0.8-1.8); Alk Phos 67 U/L (50-136); Anion Gap 7 mmol/L (6-16); Aspartate Aminotrans (AST/SGOT 22 U/L (12-37); Bilirubin, Total 0.4 mg/dL (0.1-1.0); Blood Urea Nitrogen 18 mg/dL (8-24); Bun/Creatinine Ratio 22.7 (12.0-20.0); CO2, Blood 26 mmol/L (21-32); Calcium, Blood 8.9 mg/dL (8.5-10.1); Chloride, Blood 107 mmol/L (98-108); Creatinine, Blood 0.79 mg/dL (0.40-1.00); Globulin, Blood 3.5 g/dL (2.2-4.0); Glomerular Filtration Rate >60 (60-); Glucose, Blood 96 mg/dL (70-99); Potassium, Blood 4.2 mmol/L (3.5-5.5); Sodium, Blood 140 mmol/L (136-145); Total Protein, Blood 6.3 g/dL (6.4-8.2)
[2021-06-01 16:31] LABS: Adenovirus F 40/41 Not Detected (NOT DETECT); Astrovirus Not Detected (NOT DETECT); Campylobacter Sp Not Detected (NOT DETECT); Cryptosporidium Not Detected (NOT DETECT); Cyclospora Cayetanensis Not Detected (NOT DETECT); E. Coli O157 Not Detected (NOT DETECT); Entamoeba Histolytica Not Detected (NOT DETECT); Enteroaggregative E. coli-EAEC Not Detected (NOT DETECT); Enteropathogenic E. coli-EPEC Not Detected (NOT DETECT); Enterotoxigenic E. coli-ETEC Not Detected (NOT DETECT); Giardia Lamblia Not Detected (NOT DETECT); Norovirus GI/GII Not Detected (NOT DETECT); Plesiomonas Shigelloides Not Detected (NOT DETECT); Rotavirus A Not Detected (NOT DETECT); Salmonella Sp Not Detected (NOT DETECT); Sapovirus Not Detected (NOT DETECT); Shiga Toxin-prod E. coli-STEC Not Detected (NOT DETECT); Shigella/Enteroin E. coli-EIEC Not Detected (NOT DETECT); Vibrio Cholerae Not Detected (NOT DETECT); Vibrio Sp Not Detected (NOT DETECT); Yersinia Enterocolitica Not Detected (NOT DETECT)
== END 2021-06-01 15:10 | disposition home or self-care (01) ==
LOC: ER 10:25
PROVIDERS: Emergency Medicine
DX: R19.7 Diarrhea, unspecified (principal); F03.90 Unspecified dementia, unspecified severity, without behavioral disturbance, psychotic disturbance, mood disturbance, and anxiety
CPT/HCPCS: 0097U; 80053; 85025; 87324; 99285; J7120

== ENCOUNTER 2021-07-09 08:51 | Emergency (ER) | payer MEDICARE ==
[~2021-07-09] VITALS: Ht 160 cm; Wt 68.0 kg
[2021-07-09 09:54] LABS: BASOPHILS ABSOLUTE AUTO 0.06 K/mm3 (0.00-0.23); BASOPHILS PERCENT AUTO 1 % (0-2); EOSINOPHILS ABSOLUTE AUTO 0.09 K/mm3 (0.00-0.68); EOSINOPHILS PERCENT AUTO 1 % (0-6); Hematocrit 35.9 % (33.0-51.0); Hemoglobin 11.5 g/dL (11.5-16.0); IMMATURE GRAN ABSOLUTE AUTO 0.03 K/mm3 (0.00-0.10); IMMATURE GRAN PERCENT AUTO 0 % (0-1); LYMPHOCYTES PERCENT AUTO 31 % (21-46); MONOCYTES ABSOLUTE AUTO 0.64 K/mm3 (0.16-1.47); MONOCYTES PERCENT AUTO 7 % (4-13); Mean Corpuscular HGB 26.9 pg (26.0-34.0); Mean Corpuscular Volume 84 fL (80-100); Mean Platelet Volume 8.9 fL (9.1-12.4); NEUTROPHILS ABSOLUTE AUTO 5.39 K/mm3 (1.96-9.15); NEUTROPHILS PERCENT AUTO 60 % (41-73); Platelet Count 347 K/mm3 (150-400); RDW Coefficient Variation 14.4 % (11.7-14.2); RDW Standard Deviation 44.1 fL (35.1-46.3); Red Blood Cell Count 4.28 M/mm3 (3.80-5.20); White Blood Cell Count 9.01 K/mm3 (4.00-11.30)
[2021-07-09 10:23] LABS: Source, Urine Straight Cath
[2021-07-09 10:24] LABS: Alanine Aminotransfer (ALT/SGP 17 U/L (12-78); Albumin, Blood 3.5 g/dL (3.4-5.0); Albumin/Globulin Ratio 0.8 (0.8-1.8); Alk Phos 62 U/L (50-136); Anion Gap 6 mmol/L (6-16); Aspartate Aminotrans (AST/SGOT 14 U/L (12-37); Bilirubin, Total 0.4 mg/dL (0.1-1.0); Blood Urea Nitrogen 20 mg/dL (8-24); Bun/Creatinine Ratio 26.5 (12.0-20.0); CO2, Blood 27 mmol/L (21-32); Calcium, Blood 9.4 mg/dL (8.5-10.1); Chloride, Blood 105 mmol/L (98-108); Creatinine, Blood 0.76 mg/dL (0.40-1.00); Globulin, Blood 4.4 g/dL (2.2-4.0); Glomerular Filtration Rate >60 (60-); Glucose, Blood 143 mg/dL (70-99); Potassium, Blood 4.1 mmol/L (3.5-5.5); Sodium, Blood 138 mmol/L (136-145); Total Protein, Blood 7.9 g/dL (6.4-8.2)
[2021-07-09 10:48] LABS: Influenza A, PCR NEGATIVE (NEGATIVE); Influenza B, PCR NEGATIVE (NEGATIVE); Resp Syncytial Virus, PCR NEGATIVE (NEGATIVE); SARS-Cov-2 (COVID-19) PCR, MMC NEGATIVE (NEGATIVE)
[2021-07-09 10:56] LABS: Appearance, Urine Clear (Clear); Bilirubin, Urine Neg (Neg); Blood, Urine Neg (Neg); Color, Urine Yellow (P-Yellow); Glucose Qualitative, Urine Neg (Neg); Ketones, Urine Neg (Neg); Leukocyte Esterase, Urine Neg (Neg); Nitrite, Urine Neg (Neg); Protein, Urine Neg (Neg); Urobilinogen, Urine NORM (Normal)
[2021-07-09] MEDS ORDERED: Clindamycin HC150 MG PO (12:24)
== END 2021-07-09 15:08 | disposition home or self-care (01) ==
LOC: ER 08:51
PROVIDERS: Student in an Organized Health Care Education/Training Program
DX: L89.322 Pressure ulcer of left buttock, stage 2 (principal); L03.317 Cellulitis of buttock; F03.90 Unspecified dementia, unspecified severity, without behavioral disturbance, psychotic disturbance, mood disturbance, and anxiety; Z79.82 Long term (current) use of aspirin; Z79.84 Long term (current) use of oral hypoglycemic drugs; Z79.899 Other long term (current) drug therapy; Z20.822 Contact with and (suspected) exposure to COVID-19
CPT/HCPCS: 0241U; 36415; 51701; 71045; 80053; 81003; 83605; 83735; 85025; 96365-59; 96366-59; 96367-59; 99284-25; J0696; J3370; J7030

== ENCOUNTER 2021-07-28 15:30 | Emergency (ER) | payer MEDICARE ==
[~2021-07-28] VITALS: Ht 167.6 cm; Wt 68.0 kg
[~2021-07-28 15:30] MED LIST changes: +Clindamycin HC150 MG PO
== END 2021-07-28 19:53 | disposition home or self-care (01) ==
LOC: ER 15:30
DX: Z00.8 Encounter for other general examination (principal); I10 Essential (primary) hypertension; E11.9 Type 2 diabetes mellitus without complications; Z79.899 Other long term (current) drug therapy
CPT/HCPCS: 99282